=== PATIENT | male | born 1990 | race American Indian/Alaskan Native ===

== ENCOUNTER 2018-07-24 18:26 | Emergency (ER) | payer OTHER ==
[2018-07-24 18:59] VITALS: BP 110/78
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
== END 2018-07-24 23:00 | disposition left against medical advice (07) ==
LOC: ED 18:26
DX: M54.2 Cervicalgia (principal); M79.662 Pain in left lower leg; Z53.21 Procedure and treatment not carried out due to patient leaving prior to being seen by health care provider
CPT/HCPCS: 70360